=== PATIENT | male | born 1970 | race Caucasian/White ===

== ENCOUNTER 2022-10-30 07:42 | Outpatient (CLI) | payer OTHER, SELFPAY ==
[2022-10-30 13:56] LABS: Albumin* 4.8 g/dL (3.3-5.0); Chloride* 101 mmol/L (96-114)
[2022-10-30 13:57] LABS: Potassium* 4.2 mmol/L (3.6-5.1); Sodium* 139 mmol/L (135-149)
[2022-10-30 13:59] LABS: Alkaline Phosphatase* 87 U/L (40-150); Aspartate Amino Transferase* 23 U/L (12-35); Bilirubin Total* 0.7 mg/dL (0.1-1.5); Blood Urea Nitrogen* 21 mg/dL (7-30); Carbon Dioxide* 29 mmol/L (20-32); Cholesterol* 151 mg/dL (90-199); Creatinine* 1.1 mg/dL (0.5-1.5); Estimated Glomerular Filt Rate 80 ml/min; Glucose* 188 mg/dL (60-115); Total Protein* 7.5 g/dL (6.0-8.3)
[2022-10-30 14:00] LABS: Alanine Aminotransferase* 22 U/L (4-50); Calcium* 9.2 mg/dL (8.4-10.6); HDL Cholesterol* 36 mg/dL (>=40); LDL Cholesterol Calculated 83 mg/dL (<100); Triglycerides* 161 mg/dL (40-149)
== END 2022-10-30 07:43 | disposition home or self-care (01) ==
PROVIDERS: PCP Physician Assistant Medical; Visit Provider Physician Assistant Medical
DX: E78.5 Hyperlipidemia, unspecified (principal); E11.9 Type 2 diabetes mellitus without complications
CPT/HCPCS: 80053; 80061

== ENCOUNTER 2023-04-23 07:29 | Outpatient (CLI) | payer OTHER, SELFPAY | END 2023-04-23 07:30 | disposition home or self-care (01) | LOC: NFLDREF 16:30 | PROVIDERS: PCP Physician Assistant Medical; Referring Provider Physician Assistant Medical; Visit Provider Physician Assistant Medical | DX: E11.3553 Type 2 diabetes mellitus with stable proliferative diabetic retinopathy, bilateral (principal); E11.9 Type 2 diabetes mellitus without complications; Z79.4 Long term (current) use of insulin | CPT/HCPCS: 82043; 82570 ==

== ENCOUNTER 2024-06-12 16:14 | Outpatient (CLI) | payer OTHER, SELFPAY | END 2024-06-12 16:15 | disposition home or self-care (01) | LOC: NFLDREF 06-16 06:10 | PROVIDERS: PCP Family Medicine; Referring Provider Physician Assistant Medical; Visit Provider Family Medicine | DX: I10 Essential (primary) hypertension; E11.9 Type 2 diabetes mellitus without complications; E78.5 Hyperlipidemia, unspecified; Z11.59 Encounter for screening for other viral diseases; Z12.5 Encounter for screening for malignant neoplasm of prostate | CPT/HCPCS: 80053; 80061; 82043; 82570; 86803; G0103 ==

== ENCOUNTER 2025-08-19 09:50 | Outpatient (CLI) | payer OTHER, SELFPAY | END 2025-08-19 09:51 | disposition home or self-care (01) | LOC: NFLDREF 08-28 03:29 | PROVIDERS: PCP Family Medicine; Referring Provider Family Medicine; Visit Provider Physician Assistant Medical | DX: E78.2 Mixed hyperlipidemia (principal); I10 Essential (primary) hypertension; E11.3553 Type 2 diabetes mellitus with stable proliferative diabetic retinopathy, bilateral; Z79.4 Long term (current) use of insulin; G62.9 Polyneuropathy, unspecified; Z12.5 Encounter for screening for malignant neoplasm of prostate | CPT/HCPCS: 80053; 82043; 82570; 84443; G0103 ==